=== PATIENT | female | born 1980 | race Hispanic/Latino ===

== ENCOUNTER 2022-04-05 13:51 | Emergency (ER) | payer SELFPAY ==
[2022-04-05 14:44] LABS: Hematocrit 24.8 % (36.0-45.0); Lymphocytes % 17.9 % (15.3-44.8); MPV 7.8 fL (7.6-11.3); RBC Red Blood Cell Count 3.94 M/uL (3.86-4.86)
[2022-04-05 14:59] LABS: Albumin 3.3 g/dL (3.4-5.0); Bilirubin Total 0.5 mg/dL (0.2-1.0); Potassium 4.6 mmol/L (3.5-5.1); Protein, Total 7.3 g/dL (6.4-8.2)
--- NOTE | 2022-04-05 16:39 | ER ---
Nurse's Notes [facility] Name: Mariposa Hillman Age: 41 yrs Sex: Female : 1980 Arrival Date: 04/05/2022 Time: 13:54 Bed 17 Private MD: Diagnosis: Anemia, unspecified Presentation: 04/05 14:00 Chief complaint: Patient states: she has been feeling tired for a few days, and saw her ap3 PCP recently and was told she might need blood. Patient also reports missing her period last month, but then starting a heavy period on 04/03. Coronavirus screen: At this time, the client does not indicate any symptoms associated with coronavirus-19. Ebola Screen: No symptoms or risks identified at this time. Initial Sepsis Screen: Does the patient meet any 2 criteria? No. Patient's initial sepsis screen is negative. Does the patient have a suspected source of infection? No. Patient's initial sepsis screen is negative. Risk Assessment: Do you want to hurt yourself or someone else? Patient reports no desire to harm self or others. Onset of symptoms was April 02, 2022. 14:00 Method Of Arrival: Ambulatory ap3 14:00 Acuity: JOAN 3 ap3 Triage Assessment: 14:02 General: Appears in no apparent distress. Behavior is calm, cooperative. General: ap3 Reports fatigue for. Pain: Complains of pain in head. Neuro: Level of Consciousness is awake, alert, obeys commands, Oriented to person, place, time, situation, Appropriate for age Gait is steady, Speech is normal. Neuro: Reports headache weakness. Cardiovascular: Patient's skin is warm and dry. Respiratory: Airway is patent Respiratory effort is even, unlabored, Respiratory pattern is regular, symmetrical. MICROBIOLOGY ANALYST: 14:03 LMP 04/03/2022 ap3 Historical: - Allergies: 14:02 No Known Allergies; ap3 - Home Meds: 14:02 None [Active]; ap3 - PMHx: 14:02 None; ap3 - Immunization history:: Client reports receiving the 2nd dose of the Covid vaccine. - Social history:: Smoking status: Patient denies any tobacco usage or history of. Screenin:03 Abuse screen: Denies threats or abuse. Nutritional screening: No deficits noted. ap3 Tuberculosis screening: No symptoms or risk factors identified. 16:29 Fall Risk None identified. Assessment: 14:25 General: Appears in no apparent distress. Behavior is calm, cooperative. Pain: ww Complains of pain in abdomen. Neuro: Level of Consciousness is awake, alert, obeys commands, Oriented to person, place, time, situation, Speech is normal. Cardiovascular: Capillary refill < 3 seconds Patient's skin is warm and dry. Rhythm is regular Chest pain is denied. Respiratory: Airway is patent Respiratory effort is even, unlabored, Respiratory pattern is regular, symmetrical. GI: Abdomen is non-distended, Abd is soft. Derm: No signs and/or symptoms reported regarding the dermatologic system. Skin is healthy with good turgor. Musculoskeletal: No signs and/or symptoms reported regarding the musculoskeletal system. Circulation, motion, and sensation intact. 15:28 Reassessment: Patient appears in no apparent distress at this time. No changes from ww previously documented assessment. Patient and/or family updated on plan of care and expected duration. Pain level reassessed. Patient is alert, oriented x 3, equal unlabored respirations, skin warm/dry/pink. 16:29 Reassessment: Patient appears in no apparent distress at this time. No changes from ww previously documented assessment. Patient and/or family updated on plan of care and expected duration. Pain level reassessed. Patient is alert, oriented x 3, equal unlabored respirations, skin warm/dry/pink. 17:40 Reassessment: Patient appears in no apparent distress at this time. No changes from ww previously documented assessment. Patient and/or family updated on plan of care and expected duration. Pain level reassessed. Patient is alert, oriented x 3, equal unlabored respirations, skin warm/dry/pink. 18:33 Reassessment: Patient appears in no apparent distress at this time. No changes from ww previously documented assessment. Patient and/or family updated on plan of care and expected duration. Pain level reassessed. Patient is alert, oriented x 3, equal unlabored respirations, skin warm/dry/pink. 19:38 Reassessment: Patient is alert, oriented x 3, equal unlabored respirations, skin bb warm/dry/pink. discharged pt through language line Florinda COOL at bedside for pt discussion. Pt verbalized understanding of and agrees to plan of care discharge instructions given in Russian pt ambulated with steady gait to exit accompanied by family. Vital Signs: 14:00 BP 141 / 98; Pulse 99; Resp 18; Temp 97.7; Pulse Ox 100% ; Weight 73.03 kg; Height 5 ap3 ft. 3 in. (160.02 cm); 14:32 BP 120 / 92; Pulse 82; Resp 18; Pulse Ox 100% ; ww 15:33 BP 126 / 86; Pulse 80; Resp 18; Pulse Ox 100% ; ww 16:30 BP 125 / 87; Pulse 77; Resp 16; Pulse Ox 100% ; ww 17:30 BP 134 / 85; Pulse 74; Resp 18; Pulse Ox 100% ; ww 18:33 BP 122 / 85; Pulse 84; Resp 18; Pulse Ox 100% on R/A; ww 19:39 BP 123 / 89; Pulse 81; Resp 16 S; Pulse Ox 100% on R/A; bb 14:00 Body Mass Index 28.52 (73.03 kg, 160.02 cm) ap3 ED Course: 13:54 Patient arrived in ED. ja2 13:58 Mg Cason PA is PHCP. [facility] 13:58 Pawel Cerda MD is Attending Physician. [facility] 14:02 Triage completed. ap3 14:03 Arm band placed on right wrist. ap3 14:18 Eva Booth, RN is Primary Nurse. ww 14:25 Patient has correct armband on for positive identification. Bed in low position. Call ww light in reach. Side rails up X 1. Adult w/ patient. groundwater monitoring technician on. Pulse ox on. NIBP on. Warm blanket given. 14:25 Inserted saline lock: 20 gauge in right antecubital area, using aseptic technique. ww Blood collected. 19:40 No provider procedures requiring assistance completed. IV discontinued, intact, bb bleeding controlled, No redness/swelling at site. Pressure dressing applied. 19:42 Juliana Villagomez MD is Referral Physician. libia Administered Medications: 17:05 Drug: NS 0.9% 1000 ml Route: IV; Rate: 1 bolus; Site: right antecubital; ww Medication: 19:40 VIS not applicable for this client. bb Outcome: 16:38 Discharge ordered by . brigette 19:13 Discharge ordered by . brigette 19:40 Discharged to home ambulatory, with family. bb 19:40 Condition: stable 19:40 Discharge instructions given to patient, Instructed on discharge instructions, follow up and referral plans. medication usage, Demonstrated understanding of instructions, follow-up care, medications, Prescriptions given X 2. 21:00 Patient left the ED. lg3 Signatures: Mg Cason PA PA jmm Ballard, Brenda, RN RN bb Alisha Santo RN RN [email or web address] Chelita Chavira RN RN [id number] Dinora Silva Whitney RN RN
--- NOTE | 2022-04-05 16:39 | EDPHYS ---
Physician Documentation [facility] Name: Mariposa Hillman Age: 41 yrs Sex: Female : 1980 Arrival Date: 04/05/2022 Time: 13:54 Bed 17 Private MD: ED Physician Pawel Cerda HPI: 04/05 14:05 This 41 yrs old Female presents to ER via Ambulatory with complaints of Abnormal Lab jmm Results. 14:05 This is a 41 year old female with no chronic medical conditions that presents to the ED jmm with complaints of fatigue beginning approx 1 week ago. Was seen by pcp and told her blood counts are low. Patient states she did have a heavy cycle earlier this month but is not currently bleeding. Patient denies black stools. . BARK TANNER: 14:03 LMP 04/03/2022 ap3 Historical: - Allergies: 14:02 No Known Allergies; ap3 - Home Meds: 14:02 None [Active]; ap3 - PMHx: 14:02 None; ap3 - Immunization history:: Client reports receiving the 2nd dose of the Covid vaccine. - Social history:: Smoking status: Patient denies any tobacco usage or history of. ROS: 14:05 Cardiovascular: Negative for chest pain, palpitations, and edema, Respiratory: Negative jmm for shortness of breath, cough, wheezing, and pleuritic chest pain, Abdomen/GI: Negative for abdominal pain, nausea, vomiting, diarrhea, and constipation. 14:05 Constitutional: Positive for body aches, chills. 14:05 Neuro: Positive for weakness. 14:05 All other systems are negative. 14:05 All other systems are negative. Exam: 14:05 Constitutional: This is a well developed, well nourished patient who is awake, alert, jmm and in no acute distress. Head/Face: atraumatic. Eyes: EOMI, no conjunctival erythema appreciated ENT: Moist Mucus Membranes Neck: Trachea midline, Supple Chest/axilla: Normal chest wall appearance and motion. Cardiovascular: Regular rate and rhythm. No edema appreciated Respiratory: Normal respirations, no respiratory distress appreciated Abdomen/GI: Non distended, soft Back: Normal ROM Skin: General appearance color normal MS/ Extremity: Moves all extremities, no obvious deformities appreciated, no edema noted to the lower extremities Neuro: Awake and alert Psych: Behavior is normal, Mood is normal, Patient is cooperative and pleasant Vital Signs: 14:00 BP 141 / 98; Pulse 99; Resp 18; Temp 97.7; Pulse Ox 100% ; Weight 73.03 kg; Height 5 ap3 ft. 3 in. (160.02 cm); 14:32 BP 120 / 92; Pulse 82; Resp 18; Pulse Ox 100% ; ww 15:33 BP 126 / 86; Pulse 80; Resp 18; Pulse Ox 100% ; ww 16:30 BP 125 / 87; Pulse 77; Resp 16; Pulse Ox 100% ; ww 17:30 BP 134 / 85; Pulse 74; Resp 18; Pulse Ox 100% ; ww 18:33 BP 122 / 85; Pulse 84; Resp 18; Pulse Ox 100% on R/A; ww 19:39 BP 123 / 89; Pulse 81; Resp 16 S; Pulse Ox 100% on R/A; bb 14:00 Body Mass Index 28.52 (73.03 kg, 160.02 cm) ap3 MDM: 14:05 Patient medically screened. [facility] 16:34 Data reviewed: vital signs, nurses notes. Counseling: I had a detailed discussion with libia the patient and/or guardian regarding: the historical points, exam findings, and any diagnostic results supporting the discharge/admit diagnosis, lab results, the need for outpatient follow up, to return to the emergency department if symptoms worsen or persist or if there are any questions or concerns that arise at home. ED course: Patient is alert and non toxic in appearance in the ED, HGB above 7 with no active bleeding. patient advised to follow up with pcp and otherwise given strict return precautions. Patient understood and agrees with the plan of care. . 04/05 14:16 Order name: CBC with Diff; Complete Time: 18:54 [facility] 04/05 14:16 Order name: CMP; Complete Time: 15:02 [facility] 04/05 14:16 Order name: Type And Screen; Complete Time: 15:18 [facility] 04/05 14:21 Order name: SARS-COV-2 RT PCR (Document "Date of Onset" if Symptomatic); Complete Time: [facility] 18:32 04/05 16:42 Order name: ABO/RH no charge [facility] 04/05 18:54 Order name: CBC Smear Scan; Complete Time: 18:54 [facility] 04/05 14:16 Order name: IV Saline Lock; Complete Time: 14:32 [facility] 04/05 14:16 Order name: Labs collected and sent; Complete Time: 14:32 [facility] Administered Medications: 17:05 Drug: NS 0.9% 1000 ml Route: IV; Rate: 1 bolus; Site: right antecubital; ww Disposition Summary: 04/05/22 19:13 Discharge Ordered Location: Home(04/05/22 19:13) [facility] Condition: Stable(04/05/22 19:13) jm Diagnosis - Anemia, unspecified(04/05/22 19:13) jm Followup: [facility] - With: Juliana Villagomez MD - When: 2 - 3 days - Reason: Recheck today's complaints, Continuance of care, Re-evaluation by your physician Discharge Instructions: - Discharge Summary Sheet [facility] - Anemia [facility] Forms: - Medication Reconciliation Form [facility] - Thank You Letter [facility] - Antibiotic Education [facility] - Prescription Opioid Use [facility] Prescriptions: - Ferrous Sulfate 325 mg (65 mg Iron) Oral Tablet - take 1 tablet by ORAL route every 8 hours; 90 tablet; Refills: 0, Product jmm Selection Permitted - Colace 100 mg Oral Tablet - take 1 tablet by ORAL route every 12 hours; 14 tablet; Refills: 0, Product jm Selection Permitted Signatures: Dispatcher [employer] Pawel Balbuena MD MD cha Mickail, Joel, PA PA jmm Prokisch, Amanda RN RN ap3 Eva Booth RN RN ww Brown, Sophia, PA PA sb3 Corrections: (The following items were deleted from the chart) 16:43 16:38 Home [facility] 16:43 16:38 Stable [facility] 16:43 16:38 Anemia, unspecified [facility]
[2022-04-05] MEDS ORDERED: NA CHLORIDE 0.9% 1,000 ML ONE (17:07)
[2022-04-05 18:53] LABS: Anisocytosis 1+; Blood Morphology Comment NOTED (NOT SEEN); Hypochromasia 2+; Platelet Estimate INCR; White Blood Cell Scan OK (OK)
[2022-04-05 22:02] VITALS: TEMP 97.7; O2SAT 100
[2022-04-05 22:10] VITALS: BP 123/89
== END 2022-04-05 21:00 | disposition home or self-care (01) ==
LOC: ER 13:51
DX: D64.9 Anemia, unspecified (principal); Z20.822 Contact with and (suspected) exposure to COVID-19
CPT/HCPCS: 36415; 80053; 85025; 86850; 86900; 86901; J7030; U0003